=== PATIENT | female | born 1975 | race Caucasian/White ===

== ENCOUNTER 2019-07-30 22:38 | Emergency (ER) | payer OTHER ==
[~2019-07-30] VITALS: Ht 167.6 cm; Wt 74.8 kg
[~2019-07-30 22:38] MED LIST: GLYB1TAB29 PO; LANTUS SUBQ; PREN-385 PO
[2019-07-30 22:45] VITALS: BP 130/85
--- NOTE | 2019-07-30 22:45 | NUR ---
TO BED # -03 AMBULATORY
--- NOTE | 2019-07-30 22:55 | NUR ---
PT C/O LT FLANK PAIN THAT RADIATES TO LOW ABD X3 DAYS. DENIES N/V/D. INCREASE IN URINATION. DENIES DYSURIA. PT STATES CHILLS X3 DAYS. PT STATES SHARP 10/10 PAIN AT THIS TIME. PT "FEELS BLOATED". +HEADACHE AND INCREASE IN COUGH FOR 3 DAYS. PT IN BED WITH FAMILY MEMBER AT BEDSIDE. VSS AT THIS TIME MEDHX: DM, ANEMIA ALLERGIES: AMOXICILLIN
[2019-07-30] MEDS ORDERED: KETOROLAC 30 MG/ML VIAL IM ONE (23:15)
--- NOTE | 2019-07-30 23:37 | NUR ---
PT TAKEN TO CT
[2019-07-30 23:43] LABS: BASOPHILS % (AUTO) 0.3 % (0.0-2.0); EOSINOPHILS # (AUTO) 0.1 K/uL (0-0.4); EOSINOPHILS % (AUTO) 1.5 % (0.0-4.0); HEMATOCRIT 35.6 % (36-48); HEMOGLOBIN 11.7 g/dL (12.0-16.0); LYMPHOCYTES # (AUTO) 1.6 K/uL (2.5-16.5); MEAN CORPUSCULAR HEMOGLOBIN 27 pg (27-31); MEAN CORPUSCULAR HGB CONC 33 g/dL (33-37); MEAN CORPUSCULAR VOLUME 82.3 fL (80-94); MONOCYTES # (AUTO) 0.6 K/uL (0.8-1.0); MONOCYTES % (AUTO) 9.4 % (1.7-9.3); NEUTROPHILS # (AUTO) 4.4 K/uL (1.8-7.7); NEUTROPHILS % (AUTO) 64.8 % (42.2-75.2); PLATELET COUNT (AUTO) 216 K/uL (140-450); RED BLOOD CELL COUNT(AUTO) 4.32 MIL/uL (4.20-5.40); RED CELL DISTRIBUTION WIDTH 14.3 % (11.6-13.7); WHITE BLOOD COUNT (AUTO) 6.8 K/uL (4.8-10.8)
[2019-07-30 23:48] LABS: ANION GAP 12.1 (8-16); CARBON DIOXIDE 28.9 mmol/L (21-32); CREATININE 0.9 mg/dL (0.6-1.3)
--- NOTE | 2019-07-30 23:48 | NUR ---
PT RETURN FROM CT
[2019-07-30 23:56] LABS: ALBUMIN 2.9 g/dL (3.4-5.0); TOTAL BILIRUBIN 0.3 mg/dL (0.0-1.0)
--- NOTE | 2019-07-31 00:43 | NUR ---
PT STATES 8/10 SHARP PAIN, WORSE UPON MOVEMENT. DR MCGUIRE MADE AWARE.
[2019-07-31] MEDS ORDERED: fentaNYL 0.05 MG/ML VIAL IM ONE (00:55)
[2019-07-31] MEDS ORDERED: NACL 0.9% 1,000 ML IV ONE (01:20)
--- NOTE | 2019-07-31 01:57 | NUR ---
PT STATES RELIEF OF PAIN AT THIS TIME. PT POSITIONED COMFORTABLY IN BED, MOTHER AT BEDSIDE. BED LOCKED AND IN LOW POSITON. WILL CONTINUE TO MONITOR. VSS.
[2019-07-31 02:27] VITALS: BP 144/79
--- NOTE | 2019-07-31 02:27 | NUR ---
DISCHARGE PAPERS GIVEN TO PT. PT STATES RELIEF. 04/06 TOLLERABLE PAIN. VSS. RX OF NORCO AND REGLAN GIVEN. SIDE EFFECTS EXPLAINED. INSTRUCTED TO F/U WITH PCP AND WHEN TO RETURN TO ER. PT VERBALLIZED UNDERSTANDING TO DC INSTRUCTIONS. ALL QUESTIONS ANSWERED.
== END 2019-07-31 02:27 | disposition home or self-care (01) ==
LOC: MED 22:38
DX: R10.12 Left upper quadrant pain (principal); E11.65 Type 2 diabetes mellitus with hyperglycemia; D64.9 Anemia, unspecified; I10 Essential (primary) hypertension; Z90.710 Acquired absence of both cervix and uterus; Z79.899 Other long term (current) drug therapy; Z79.4 Long term (current) use of insulin
CPT/HCPCS: 36415; 74176; 80053; 81002; 81025; 82948; 85025; 96360; 96372; 99284; J1885; J3010; J7030

== ENCOUNTER 2019-09-02 17:47 | Emergency (ER) | payer OTHER ==
[2019-09-02] MEDS ORDERED: KETOROLAC 60 MG/2 ML VIAL IM ONE (21:56)
== END 2019-09-02 22:42 | disposition home or self-care (01) ==
LOC: MED 17:47
DX: S92.405A Nondisplaced unspecified fracture of left great toe, initial encounter for closed fracture (principal); E11.9 Type 2 diabetes mellitus without complications; W20.8XXA Other cause of strike by thrown, projected or falling object, initial encounter; Y93.89 Activity, other specified; Y92.89 Other specified places as the place of occurrence of the external cause; Y99.8 Other external cause status
CPT/HCPCS: 29515; 73630; 99283; J1885; Q0092

== ENCOUNTER 2019-09-12 08:01 | Emergency (ER) | payer OTHER ==
[~2019-09-12] VITALS: Ht 167.6 cm; Wt 83.5 kg
[2019-09-12 08:06] VITALS: BP 122/76
--- NOTE | 2019-09-12 08:10 | NUR ---
PT USED WALKER TO ASSIST TO BED 3
--- NOTE | 2019-09-12 08:17 | NUR ---
44 Y/O C/O PAIN TO LEFT FOOT THAT RADIATES TO UPPER THIGH. PT STATES SHE BROKE HER TOE LAST WEEK AT WORK. HAS BEEN TAKING IBPROFEN FOR THE PAIN, HOWEVER THE PAIN HAS CHANGED FROM LOCALIZED TOE PAIN, TO RADIATING UP HER LEG TO HER HIP AREA. PT STATES IBPROFEN HAS WORKED FOR HER AT HOME. PT POSITIONED FOR COMFORT, BED LOWERED, X1 SIDE RAIL IN PLACE. OLESYA
--- NOTE | 2019-09-12 08:27 | NUR ---
EVALUATING PT AT BEDSIDE.
--- NOTE | 2019-09-12 08:40 | NUR ---
Penny eddy in ED - 09/12/19 at 0840 by [facility] AT BEDSIDE WITH PT.
--- NOTE | 2019-09-12 08:40 | NUR ---
EMT AT BEDSIDE WITH PT.
[2019-09-12 09:07] VITALS: BP 122/76
== END 2019-09-12 09:07 | disposition home or self-care (01) ==
LOC: MED 08:01
DX: M79.675 Pain in left toe(s) (principal); E11.9 Type 2 diabetes mellitus without complications; I10 Essential (primary) hypertension; Z79.899 Other long term (current) drug therapy; Z79.4 Long term (current) use of insulin
CPT/HCPCS: 29515; 99283

== ENCOUNTER 2019-10-01 09:33 | Emergency (ER) | payer OTHER ==
[~2019-10-01] VITALS: Ht 167.6 cm; Wt 83.5 kg
--- NOTE | 2019-10-01 09:47 | NUR ---
Patient ambulated to bed 6 with use of crutches.
[2019-10-01 09:51] VITALS: BP 169/96
--- NOTE | 2019-10-01 09:55 | NUR ---
44 Y/O F C/C LEFT FOOT PAIN. PER PT HAD LEFT FOOT FX A MONTH AGO. PAIN HAS BEEN PERSISTENT AND INCREASING. PT CONCERNED WITH FOOT REDNESS AND ABRASION. PAIN 05/07. PER PT NKA. HX DM. RX METFORMIN, LANTUS. NO N/V/D. SIDE RAIL X1. FAMILY AT BEDSIDE.
--- NOTE | 2019-10-01 10:23 | NUR ---
Dr. Oquendo is re-evaluating the patient at bedside.
[2019-10-01 10:31] VITALS: BP 135/76
--- NOTE | 2019-10-01 10:31 | NUR ---
Patient discharged with v/s stable. Written and verbal after care instructions given and explained. Patient verbalized understanding. Ambulatory with steady gait. All questions addressed prior to discharge. Advised to follow up with PMD.
== END 2019-10-01 10:31 | disposition home or self-care (01) ==
LOC: MED 09:33
DX: M79.672 Pain in left foot (principal); E11.9 Type 2 diabetes mellitus without complications; I10 Essential (primary) hypertension; Z79.899 Other long term (current) drug therapy; Z79.4 Long term (current) use of insulin
CPT/HCPCS: 99283

== ENCOUNTER 2019-10-13 06:54 | Emergency (ER) | payer OTHER ==
[~2019-10-13] VITALS: Ht 167.6 cm; Wt 83.0 kg
[2019-10-13 06:55] VITALS: BP 129/90
--- NOTE | 2019-10-13 06:55 | NUR ---
to bed # 03 ambulatory
--- NOTE | 2019-10-13 07:40 | NUR ---
lower abd pain, n/v, HX: HTN, DM. SKIN IS PINK/WARM/DRY; AAOX4 WITH EVEN AND STEADY GAIT; LUNGS CLEAR BL; HR EVEN AND REGULAR; PT DENIES ANY FEVER, CP, SOB, OR COUGH AT THIS TIME; PATIENT STATES PAIN OF 9/10 AT THIS TIME; VSS; PATIENT POSITIONED FOR COMFORT; HOB ELEVATED; BEDRAILS UP X2; BED DOWN. ER MD MADE AWARE OF PT STATUS.FAMILY AT BEDSIDE.
[2019-10-13] MEDS ORDERED: KETOROLAC 30 MG/ML VIAL IM ONE (07:55)
--- NOTE | 2019-10-13 08:35 | NUR ---
Patient discharged with v/s stable. Written and verbal after care instructions given and explained. Patient alert, oriented and verbalized understanding of instructions. Ambulatory with steady gait. All questions addressed prior to discharge. ID band removed. Patient advised to follow up with PMD. Rx of MIRALAX POWDER given. Patient educated on indication of medication including possible reaction and side effects. Opportunity to ask questions provided and answered.
[2019-10-13 08:36] VITALS: BP 125/80
== END 2019-10-13 08:35 | disposition home or self-care (01) ==
LOC: MED 06:54
DX: K59.00 Constipation, unspecified (principal); E11.9 Type 2 diabetes mellitus without complications; I10 Essential (primary) hypertension; Z79.899 Other long term (current) drug therapy; Z79.84 Long term (current) use of oral hypoglycemic drugs
CPT/HCPCS: 81002; 81025; 96372; 99283; J1885

== ENCOUNTER 2020-07-21 13:51 | Emergency (ER) | payer OTHER ==
[~2020-07-21] VITALS: Ht 165.1 cm; Wt 81.6 kg
[2020-07-21 13:54] VITALS: BP 159/90
--- NOTE | 2020-07-21 14:00 | NUR ---
Pt c/o right lower quadrant pain, sudden onset about 20 min prior to arrival with vomiting. Pt states she has hx of right-sided ovarian cyst that was diagnosed last year, and she also states she has those sx each month but "this time is really bad." Denies abnormal vaginal bleeding, lower back pain, diarrhea, fever, chills, or UTI sx. Pmh: HTN, DM, RIGHT-SIDED OVARIAN CYST
[2020-07-21] MEDS ORDERED: NACL 0.9% 1,000 ML IV ONE (14:10)
[2020-07-21] MEDS ORDERED: KETOROLAC 30 MG/ML VIAL IVP ONE (14:10)
[2020-07-21] MEDS ORDERED: ONDANSETRON 4 MG/2 ML VIAL IVP ONE (14:10)
--- NOTE | 2020-07-21 14:30 | NUR ---
PT HAS BEEN TAKING TO CT SCAN VIA .
[2020-07-21 14:31] LABS: BASOPHILS % (AUTO) 0.5 % (0.0-2.0); EOSINOPHILS % (AUTO) 0.9 % (0.0-4.0); HEMATOCRIT 37.4 % (36-48); HEMOGLOBIN 12.8 g/dL (12.0-16.0); LYMPHOCYTES # (AUTO) 1.2 K/uL (2.5-16.5); LYMPHOCYTES % (AUTO) 22.7 % (20.5-51.1); MEAN CORPUSCULAR HEMOGLOBIN 28 pg (27-31); MEAN CORPUSCULAR HGB CONC 34 g/dL (33-37); MEAN CORPUSCULAR VOLUME 82.4 fL (80-94); MONOCYTES # (AUTO) 0.4 K/uL (0.8-1.0); MONOCYTES % (AUTO) 7.1 % (1.7-9.3); NEUTROPHILS # (AUTO) 3.6 K/uL (1.8-7.7); NEUTROPHILS % (AUTO) 68.8 % (42.2-75.2); PLATELET COUNT (AUTO) 217 K/uL (140-450); RED BLOOD CELL COUNT(AUTO) 4.54 MIL/uL (4.20-5.40); WHITE BLOOD COUNT (AUTO) 5.3 K/uL (4.8-10.8)
[2020-07-21 14:52] LABS: ALBUMIN 2.9 g/dL (3.4-5.0); ANION GAP 15.2 (8-16); CARBON DIOXIDE 25.3 mmol/L (21-32); CREATININE 0.7 mg/dL (0.6-1.3); POTASSIUM 3.5 mmol/L (3.5-5.1); TOTAL BILIRUBIN 0.3 mg/dL (0.0-1.0)
--- NOTE | 2020-07-21 15:35 | NUR ---
US IS AT BEDSIDE.
[2020-07-21 17:02] VITALS: BP 113/61
--- NOTE | 2020-07-21 17:02 | NUR ---
Patient discharged with v/s stable. Written and verbal after care instructions given and explained. Patient alert, oriented and verbalized understanding of instructions. Ambulatory with steady gait. All questions addressed prior to discharge. ID band removed. Patient advised to follow up with PMD. Rx of Zofran, [place], and Motrin given. Patient educated on indication of medication including possible reaction and side effects. Opportunity to ask questions provided and answered.
== END 2020-07-21 17:02 | disposition home or self-care (01) ==
LOC: MED 13:51
DX: N83.209 Unspecified ovarian cyst, unspecified side (principal); E11.9 Type 2 diabetes mellitus without complications; Z79.4 Long term (current) use of insulin; Z98.890 Other specified postprocedural states; Z79.899 Other long term (current) drug therapy
CPT/HCPCS: 36415; 74176; 76856; 80053; 81002; 81025; 83690; 85025; 96361; 96374; 96375; 99285; J1885; J2405; Q0092; J7030

== ENCOUNTER 2021-02-14 14:51 | Emergency (ER) | payer OTHER ==
[~2021-02-14] VITALS: Ht 167.6 cm; Wt 133.4 kg
[2021-02-14 15:02] VITALS: BP 135/72
[2021-02-14] MEDS ORDERED: NACL 0.9% 1,000 ML IV ONE (15:15)
--- NOTE | 2021-02-14 15:38 | NUR ---
45/F presents to ED with c/o high blood sugar. Patient states she was seen at a clinic this morning and was told to come here due to high blood sugar. Patient states she took her Metformin this morning and had her last meal at 11am. Patient denies pain, headache, dizziness or blurred vision. States she just feels sleepy at this time. Patient is alert and oriented x4, answering questions appropriately. Accucheck on arrival 507.
[2021-02-14 15:54] LABS: BASOPHILS % (AUTO) 0.3 % (0.0-2.0); EOSINOPHILS # (AUTO) 0.1 K/uL (0-0.4); EOSINOPHILS % (AUTO) 1.5 % (0.0-4.0); HEMATOCRIT 36.2 % (36-48); HEMOGLOBIN 12.6 g/dL (12.0-16.0); LYMPHOCYTES # (AUTO) 1.4 K/uL (2.5-16.5); LYMPHOCYTES % (AUTO) 20.8 % (20.5-51.1); MEAN CORPUSCULAR HEMOGLOBIN 29 pg (27-31); MEAN CORPUSCULAR HGB CONC 35 g/dL (33-37); MEAN CORPUSCULAR VOLUME 83.6 fL (80-94); MONOCYTES # (AUTO) 0.6 K/uL (0.8-1.0); MONOCYTES % (AUTO) 8.7 % (1.7-9.3); NEUTROPHILS # (AUTO) 4.5 K/uL (1.8-7.7); NEUTROPHILS % (AUTO) 68.7 % (42.2-75.2); PLATELET COUNT (AUTO) 213 K/uL (140-450); RED BLOOD CELL COUNT(AUTO) 4.33 MIL/uL (4.20-5.40); RED CELL DISTRIBUTION WIDTH 14.1 % (11.6-13.7); WHITE BLOOD COUNT (AUTO) 6.6 K/uL (4.8-10.8)
[2021-02-14 16:16] LABS: ANION GAP 12.3 (8-16); CARBON DIOXIDE 26.6 mmol/L (21-32); CREATININE 1.1 mg/dL (0.6-1.3); POTASSIUM 3.9 mmol/L (3.5-5.1)
--- NOTE | 2021-02-14 16:20 | NUR ---
Accucheck rechecked, 421, Dr. Mosher made aware.
[2021-02-14] MEDS ORDERED: INSULIN REGULAR, HUMAN 100 UNIT/ML VIAL IVP ONE (16:30)
--- NOTE | 2021-02-14 17:10 | NUR ---
Patient discharged with v/s stable. Written and verbal after care instructions given and explained. Patient verbalized understanding. Ambulatory with steady gait. All questions addressed prior to discharge. Advised to follow up with PMD. Accucheck rechecked at discharge, 254.
[2021-02-14 17:13] VITALS: BP 131/78
== END 2021-02-14 17:10 | disposition home or self-care (01) ==
LOC: MED 14:51
DX: E11.65 Type 2 diabetes mellitus with hyperglycemia (principal); R53.1 Weakness; R42 Dizziness and giddiness; Z98.890 Other specified postprocedural states; Z79.899 Other long term (current) drug therapy; Z79.4 Long term (current) use of insulin
CPT/HCPCS: 36415; 80048; 81002; 81025; 82948; 85025; 96361; 96374; 99283; J1815; J7030

== ENCOUNTER 2021-09-12 20:00 | Emergency (ER) | payer OTHER ==
[~2021-09-12] VITALS: Ht 167.6 cm; Wt 90.7 kg
[2021-09-12 20:16] VITALS: BP 107/66
--- NOTE | 2021-09-12 20:19 | NUR ---
to lobby a/w bed ambulatory
--- NOTE | 2021-09-12 21:25 | NUR ---
TO BED AMBULATORY
--- NOTE | 2021-09-12 21:35 | NUR ---
RECEIVED IN BED 12 WITH C/O SORE THROAT, BILATERAL EAR PAIN, NAUSEA, PAINFUL URINATION, AND LEG PAIN X 3 DAYS.
[2021-09-12] MEDS ORDERED: IBUPROFEN 800 MG TAB PO ONE (23:15)
[2021-09-12] MEDS ORDERED: ONDANSETRON 4 MG ODT PO ONE (23:15)
[2021-09-13] MEDS ORDERED: NACL 0.9% 1,000 ML IV ONE (00:50)
[2021-09-13 01:38] LABS: BASOPHILS % (AUTO) 0.4 % (0.0-2.0); EOSINOPHILS % (AUTO) 0.1 % (0.0-4.0); HEMATOCRIT 30.5 % (36-48); HEMOGLOBIN 10.7 g/dL (12.0-16.0); LYMPHOCYTES # (AUTO) 0.8 K/uL (2.5-16.5); LYMPHOCYTES % (AUTO) 13.1 % (20.5-51.1); MEAN CORPUSCULAR HEMOGLOBIN 28 pg (27-31); MEAN CORPUSCULAR HGB CONC 35 g/dL (33-37); MEAN CORPUSCULAR VOLUME 80.9 fL (80-94); MONOCYTES # (AUTO) 0.6 K/uL (0.8-1.0); MONOCYTES % (AUTO) 9.4 % (1.7-9.3); NEUTROPHILS # (AUTO) 4.5 K/uL (1.8-7.7); PLATELET COUNT (AUTO) 147 K/uL (140-450); RED BLOOD CELL COUNT(AUTO) 3.77 MIL/uL (4.20-5.40); RED CELL DISTRIBUTION WIDTH 13.7 % (11.6-13.7); WHITE BLOOD COUNT (AUTO) 5.9 K/uL (4.8-10.8)
[2021-09-13 01:54] LABS: ALBUMIN 2.4 g/dL (3.4-5.0); CARBON DIOXIDE 25.9 mmol/L (21-32); CREATININE 0.9 mg/dL (0.6-1.3); POTASSIUM 3.9 mmol/L (3.5-5.1); TOTAL BILIRUBIN 0.4 mg/dL (0.0-1.0)
--- NOTE | 2021-09-13 02:00 | NUR ---
RESTING IN BED WITH EYES CLOSED. RESPIRATIONS REGULAR AND UNLABORED
[2021-09-13] MEDS ORDERED: INSULIN REGULAR, HUMAN 100 UNIT/ML VIAL IVP ONE (03:05)
[2021-09-13 03:23] VITALS: BP 107/66
== END 2021-09-13 03:23 | disposition home or self-care (01) ==
LOC: MED 20:00
DX: R53.81 Other malaise (principal); Z20.822 Contact with and (suspected) exposure to COVID-19; E83.51 Hypocalcemia; E11.65 Type 2 diabetes mellitus with hyperglycemia; I10 Essential (primary) hypertension; Z79.4 Long term (current) use of insulin; Z79.899 Other long term (current) drug therapy
CPT/HCPCS: 36415; 71045; 80053; 81002; 81025; 85025; 87081; 87426; 87804; 96360; 99283; J1815; J7030; Q0092; Q0162

== ENCOUNTER 2022-06-08 23:00 | Emergency (ER) | payer OTHER ==
[~2022-06-08] VITALS: Ht 167.6 cm; Wt 85.3 kg
[~2022-06-08 23:00] MED LIST changes: -GLYB1TAB29 PO; +[UNRECOGNIZED DRUG - CODE] PO
[2022-06-08 23:29] VITALS: BP 201/104
--- NOTE | 2022-06-09 00:31 | NUR ---
PT TO BED #11
--- NOTE | 2022-06-09 00:59 | NUR ---
ERMD ASSESSING PT.
[2022-06-09] MEDS ORDERED: KETOROLAC 15 MG/ML VIAL IVP ONE (01:00)
[2022-06-09] MEDS ORDERED: ONDANSETRON 4 MG/2 ML VIAL IVP ONE (01:00)
[2022-06-09] MEDS ORDERED: NACL 0.9% 1,000 ML IV ONE ×2 (01:00→03:05)
--- NOTE | 2022-06-09 01:03 | NUR ---
LABS COLLECTED AND TAKEN TO LAB
--- NOTE | 2022-06-09 01:03 | NUR ---
46 YO F BIB SELF WITH C/C OF 9/10 H/AXFRIDAY. WENT TO URGENT CARE YESTERDAY AND WAS GIVEN A ANTI INFLAMMATORY SHOT AND MEDS, NO RELIEF. REPORTS CHILLS, DENIES FEVER. REPORTS N/V 2EPISODES, SAT AND SUN. DENIES ABD PAIN. PT STATES SHE MISSED HER INSULIN TONIGHT. HX:DM RX"INSULIN NKA
--- NOTE | 2022-06-09 01:11 | NUR ---
PT TAKEN TO CT VIA W/C.
[2022-06-09 01:30] LABS: BASOPHILS % (AUTO) 0.3 % (0.0-2.0); EOSINOPHILS % (AUTO) 0.2 % (0.0-4.0); HEMATOCRIT 33.9 % (36-48); HEMOGLOBIN 11.7 g/dL (12.0-16.0); LYMPHOCYTES # (AUTO) 0.4 K/uL (2.5-16.5); MEAN CORPUSCULAR HEMOGLOBIN 28 pg (27-31); MEAN CORPUSCULAR HGB CONC 35 g/dL (33-37); MONOCYTES # (AUTO) 0.5 K/uL (0.8-1.0); MONOCYTES % (AUTO) 7.5 % (1.7-9.3); NEUTROPHILS # (AUTO) 5.8 K/uL (1.8-7.7); PLATELET COUNT (AUTO) 161 K/uL (140-450); RED BLOOD CELL COUNT(AUTO) 4.13 MIL/uL (4.20-5.40); RED CELL DISTRIBUTION WIDTH 13.7 % (11.6-13.7); WHITE BLOOD COUNT (AUTO) 6.8 K/uL (4.8-10.8)
[2022-06-09 02:20] LABS: PROTHROMBIN TIME 10.3 secs (10.8-13.4)
--- NOTE | 2022-06-09 02:25 | NUR ---
Note surjit in EDM - 06/09/22 at 0227 by [facility] PER PLASTIC PANEL INSTALLER, IV INFILTRATED WITH CONTRAST. IV REMOVED. WARM COMPRESSES INITIATED. NOE BRAN STATED TO SCAN WITHOUT CONTRAST. ORDERS CARRIED OUT.
[2022-06-09 02:52] LABS: ALBUMIN 2.4 g/dL (3.4-5.0); ANION GAP 13.1 (8-16); CARBON DIOXIDE 25.7 mmol/L (21-32); CREATININE 1.2 mg/dL (0.6-1.3); POTASSIUM 3.8 mmol/L (3.5-5.1); TOTAL BILIRUBIN 0.4 mg/dL (0.0-1.0)
[2022-06-09] MEDS ORDERED: INSULIN REGULAR, HUMAN 100 UNIT/ML VIAL SUBQ ONE (03:05)
[2022-06-09] MEDS ORDERED: TAM75 PO (05:01)
[2022-06-09] MEDS ORDERED: IBUP-2213 PO (05:01)
[2022-06-09] MEDS ORDERED: ACET-10509 PO (05:01)
[2022-06-09] MEDS ORDERED: ONDA-188 PO (05:01)
[2022-06-09 05:08] VITALS: BP 121/61
--- NOTE | 2022-06-09 05:08 | NUR ---
Patient discharged with v/s stable. Written and verbal after care instructions given and explained. Patient alert, oriented and verbalized understanding of instructions. Ambulatory with steady gait. All questions addressed prior to discharge. ID band removed. Patient advised to follow up with PMD. Rx of ZOFRAN, TAMIFLU, TYLENOL AND IBUPROFEN given. Patient educated on indication of medication including possible reaction and side effects. Opportunity to ask questions provided and answered.
== END 2022-06-09 05:08 | disposition home or self-care (01) ==
LOC: MED 23:00
DX: E11.65 Type 2 diabetes mellitus with hyperglycemia (principal); Z20.822 Contact with and (suspected) exposure to COVID-19; J10.1 Influenza due to other identified influenza virus with other respiratory manifestations; E87.1 Hypo-osmolality and hyponatremia; I10 Essential (primary) hypertension; Z79.4 Long term (current) use of insulin; Z79.899 Other long term (current) drug therapy
CPT/HCPCS: 36415; 70450; 71045; 80053; 85025; 85610; 85730; 87426; 87804; 96361; 96372; 96374; 96375; 99285; J1815; J1885; J2405; J7030

== ENCOUNTER 2022-11-11 16:05 | Emergency (ER) | payer OTHER ==
[~2022-11-11] VITALS: Ht 167.6 cm; Wt 90.9 kg
[~2022-11-11 16:05] MED LIST changes: +ACET-10509 PO; +IBUP-2213 PO; +ONDA-188 PO; +TAM75 PO
[2022-11-11 16:12] VITALS: BP 191/88
--- NOTE | 2022-11-11 16:23 | NUR ---
PT AMB TO BED 11.
[2022-11-11] MEDS ORDERED: ACETAMINOPHEN EXTRA STRENGTH 500 MG TAB PO ONE (16:50)
[2022-11-11] MEDS ORDERED: NACL 0.9% 2,000 ML IV ONE (16:50)
[2022-11-11] MEDS ORDERED: MORPHINE SULFATE 4 MG/ML SYR IVP ONE (16:50)
[2022-11-11] MEDS ORDERED: ONDANSETRON 4 MG/2 ML VIAL IVP ONE (16:50)
[2022-11-11 17:02] LABS: APPEARANCE,URINE CLEAR (CLEAR); BILIRUBIN,URINE NEGATIVE (NEGATIVE); BLOOD, URINE 2+ (NEGATIVE); COLOR,URINE YELLOW (YELLOW); LEUKOCYTE ESTERASE ,URINE NEGATIVE (NEGATIVE); NITRITE, URINE NEGATIVE (NEGATIVE); UGLUCOSE 3+ (NEGATIVE)
[2022-11-11 17:12] LABS: RBC,URINE 11-20 (MOD) /HPF (0-5)
[2022-11-11 17:16] LABS: BASOPHILS % (AUTO) 0.2 % (0.0-2.0); EOSINOPHILS % (AUTO) 0.2 % (0.0-4.0); HEMATOCRIT 32.8 % (36-48); HEMOGLOBIN 11.3 g/dL (12.0-16.0); LYMPHOCYTES # (AUTO) 0.5 K/uL (2.5-16.5); LYMPHOCYTES % (AUTO) 5.5 % (20.5-51.1); MEAN CORPUSCULAR HEMOGLOBIN 27 pg (27-31); MEAN CORPUSCULAR HGB CONC 35 g/dL (33-37); MEAN CORPUSCULAR VOLUME 78.7 fL (80-94); MONOCYTES # (AUTO) 0.5 K/uL (0.8-1.0); MONOCYTES % (AUTO) 5.4 % (1.7-9.3); NEUTROPHILS # (AUTO) 8.7 K/uL (1.8-7.7); NEUTROPHILS % (AUTO) 88.7 % (42.2-75.2); PLATELET COUNT (AUTO) 250 K/uL (140-450); RED BLOOD CELL COUNT(AUTO) 4.17 MIL/uL (4.20-5.40); RED CELL DISTRIBUTION WIDTH 13.4 % (11.6-13.7); WHITE BLOOD COUNT (AUTO) 9.9 K/uL (4.8-10.8)
--- NOTE | 2022-11-11 17:45 | NUR ---
47/F PRESENTS TO ED WITH C/O CHEST PAIN, RADIATING TO SHOULDER SINCE THURSDAY, AND NAUSEA/VOMITING TODAY. PATIENT DENIES RECENT INJURY OR TRAUMA, STATES SHE TOOK TYLENOL FOR SYMPTOMS WITH MILD RELIEF. PATIENT ALSO C/O INTERMITTENT CHILLS, DENIES FEVERS, COUGH, SOB OR RECENT SICK CONTACTS.
[2022-11-11 18:10] LABS: ALBUMIN 3.5 g/dL (3.4-5.0); ANION GAP 13.3 (8-16); ASPARTATE AMINOTRANSFERASE 14 U/L (15-37); CARBON DIOXIDE 27.8 mmol/L (21-32); CHLORIDE 91 mmol/L (98-107); GFR ARICAN-AMERICAN 76 mL/min (>90); LIPASE 48 U/L (73-393); MAGNESIUM 1.5 mg/dL (1.8-2.4); PHOSPHORUS 2.6 mg/dL (2.5-4.9); POTASSIUM 4.1 mmol/L (3.5-5.1); SODIUM SERUM 128 mmol/L (136-145); TOTAL BILIRUBIN 0.4 mg/dL (0.0-1.0); UREA NITROGEN, BLOOD 17 mg/dL (7-18)
[2022-11-11 18:12] LABS: GLUCOSE 479 mg/dL (74-106)
[2022-11-11] MEDS ORDERED: INSULIN REGULAR, HUMAN 100 UNIT/ML VIAL SUBQ ONE (18:20)
[2022-11-11] MEDS ORDERED: MAG SULF 2000 MG/WATER PREMIX 50 ML IV ONE (18:40)
[2022-11-11] MEDS ORDERED: cefTRIAXone 1,000 MG VIAL ONE (19:05)
--- NOTE | 2022-11-11 19:14 | NUR ---
Pt report given to SUGEY GERARD. Transfer of care at this time.
--- NOTE | 2022-11-11 19:16 | NUR ---
REPORT FROM DANIELA MAYES
--- NOTE | 2022-11-11 19:26 | NUR ---
PT TO CT
--- NOTE | 2022-11-11 19:37 | NUR ---
PT BACK FROM CT
[2022-11-11] MEDS ORDERED: KETOROLAC 15 MG/ML VIAL IVP ONE (20:55)
[2022-11-11] MEDS ORDERED: ACET-10509 PO (20:55)
[2022-11-11] MEDS ORDERED: ONDA-188 PO (20:55)
[2022-11-11] MEDS ORDERED: CEFP200T20 PO (20:55)
[2022-11-11 20:56] VITALS: BP 111/52
--- NOTE | 2022-11-11 21:31 | NUR ---
d/c with VSS. d/c education given. opportunity toask questions given and answered. rx given. IV site removed, bleeding controlled with sterile gauze and reinforced with tape.
--- NOTE | 2022-11-13 13:27 | NUR ---
LATE ENTRY -- CONFIRMED WITH NURSE NS INFUSION COMPLETED AT 1804 11/11/22 AND MAGNESIUM INFUSION COMPLETED AT 2045
== END 2022-11-11 21:32 | disposition home or self-care (01) ==
LOC: MED 16:05
DX: N39.0 Urinary tract infection, site not specified (principal); Z20.822 Contact with and (suspected) exposure to COVID-19; M25.512 Pain in left shoulder; E11.65 Type 2 diabetes mellitus with hyperglycemia; N28.9 Disorder of kidney and ureter, unspecified; E11.9 Type 2 diabetes mellitus without complications; I10 Essential (primary) hypertension; Z79.4 Long term (current) use of insulin; Z79.899 Other long term (current) drug therapy
CPT/HCPCS: 36415; 71045; 71275; 73030; 80053; 81001; 81025; 82550; 83605; 83690; 83735; 83930; 84100; 84484; 85025; 85379; 87040; 87086; 87426; 87804; 93005; 96365; 96367; 96372; 96375; 99285; J0696; J1815; J1885; J2405; J3475; J7030; Q0092; Q9967; 96368

== ENCOUNTER 2022-11-13 14:47 | Inpatient (IN) | payer OTHER ==
[~2022-11-13] VITALS: Ht 167.6 cm; Wt 93.0 kg
[~2022-11-13 14:47] MED LIST changes: +CEFP200T20 PO
[2022-11-13 14:51] VITALS: BP 139/90
[2022-11-13 15:27] LABS: BASOPHILS # (AUTO) 0.1 K/uL (0.00-0.22); BASOPHILS % (AUTO) 0.7 % (0.0-2.0); EOSINOPHILS # (AUTO) 0.1 K/uL (0-0.4); EOSINOPHILS % (AUTO) 1.1 % (0.0-4.0); HEMOGLOBIN 10.3 g/dL (12.0-16.0); LYMPHOCYTES % (AUTO) 13.8 % (20.5-51.1); MEAN CORPUSCULAR HEMOGLOBIN 27 pg (27-31); MEAN CORPUSCULAR HGB CONC 34 g/dL (33-37); MEAN CORPUSCULAR VOLUME 79.4 fL (80-94); MONOCYTES # (AUTO) 0.7 K/uL (0.8-1.0); MONOCYTES % (AUTO) 9.2 % (1.7-9.3); NEUTROPHILS # (AUTO) 5.6 K/uL (1.8-7.7); NEUTROPHILS % (AUTO) 75.2 % (42.2-75.2); PLATELET COUNT (AUTO) 276 K/uL (140-450); RED BLOOD CELL COUNT(AUTO) 3.78 MIL/uL (4.20-5.40); RED CELL DISTRIBUTION WIDTH 13.6 % (11.6-13.7); WHITE BLOOD COUNT (AUTO) 7.5 K/uL (4.8-10.8)
[2022-11-13] MEDS ORDERED: cefTRIAXone 1,000 MG VIAL ONE (15:29)
--- NOTE | 2022-11-13 15:37 | NUR ---
PER DR BRENDA LANDERS TO START ANTIBIOTICS W/O NEW BLOOD CULTURES, CULTURES WERE PULLED ON 11/11/22
[2022-11-13 15:40] LABS: APPEARANCE,URINE CLEAR (CLEAR); BILIRUBIN,URINE NEGATIVE (NEGATIVE); BLOOD, URINE 1+ (NEGATIVE); COLOR,URINE YELLOW (YELLOW); LEUKOCYTE ESTERASE ,URINE NEGATIVE (NEGATIVE); NITRITE, URINE NEGATIVE (NEGATIVE); PH,URINE 5.5 (5.0-9.0); UGLUCOSE 3+ (NEGATIVE)
--- NOTE | 2022-11-13 15:41 | NUR ---
47 Y/O FEMALE BIB SELF C/O WEAKNESSX1 DAY, NAUSEA AND BURNING URINATIONX 6 DAYS. PER PT SHE WAS SEEN IN ED 2 DAYS AGO. RECEIVED + BLOOD CULTURE. BLOOD SUGAR 454 AT THIS TIME. STATES SHE IS ON DAY 2 OF CEFPODOZIME ATB, NADR. PMH: DM,HTN NKA
[2022-11-13 15:55] LABS: RBC,URINE 0 /HPF (0-5); WBC,URINE 0-5 /HPF (0-5)
[2022-11-13 16:25] LABS: ALBUMIN 3.1 g/dL (3.4-5.0); ANION GAP 13.1 (8-16); CARBON DIOXIDE 25.3 mmol/L (21-32); CREATININE 1.1 mg/dL (0.6-1.3); POTASSIUM 4.4 mmol/L (3.5-5.1); TOTAL BILIRUBIN 0.3 mg/dL (0.0-1.0)
[2022-11-13] MEDS ORDERED: HYDROcodone/APAP 5/325 MG 1 TAB TAB PO PRN (17:30)
[2022-11-13] MEDS ORDERED: ACETAMINOPHEN 325 MG TAB PO PRN (17:30)
[2022-11-13] MEDS ORDERED: MORPHINE SULFATE 4 MG/ML SYR IVP PRN (17:30)
--- NOTE | 2022-11-13 17:44 | NUR ---
PT AMBULATED TO BATHROOM WITH STEADY GAIT
[2022-11-13] MEDS: NACL 0.9% 1,000 ML IV SCH (17:49)
--- NOTE | 2022-11-13 18:18 | NUR ---
DINNER GIVEN, HOB ELEVATED
--- NOTE | 2022-11-13 19:17 | NUR ---
Pt report given to STEVEN WASHINGTON. Transfer of care at this time.
[2022-11-13] MEDS ORDERED: ONDANSETRON 4 MG/2 ML VIAL IVP ONE (19:35)
--- NOTE | 2022-11-13 19:40 | NUR ---
PT REPOSITIONED FOR COMFORT. TOLERATING FLUIDS WELL
--- NOTE | 2022-11-13 20:00 | NUR ---
PT AMBULATORY TO RESTROOM
--- NOTE | 2022-11-13 20:05 | NUR ---
PT BACK IN ROOM, ON NIGHT COORDINATOR
--- NOTE | 2022-11-13 22:35 | NUR ---
RECEIVED PATIENT FROM ER NURSE. PT AWAKE, ALERT AND ORIENTED X 4, VINCENTIAN SPEAKING. ON ROOM AIR, BREATHING EVEN AND UNLABORED. SKIN WARM, DRY AND INTACT. IV ON R AC G20, PATENT AND INTACT. PT AMBULATORY WITH STEADY GAIT. NO COMPLAINS OF PAIN. NO S/SX OF DISTRESS AT THIS MOMENT. MRSA SWAB DONE.ORIENTED TO ROOM AND CALL LIGHT. ALL PRECAUTIONS IN PLACE. CALL LIGHT WITHIN REACH. WILL CONTINUE TO MONITOR.
--- NOTE | 2022-11-14 02:41 | NUR ---
PT ASLEEP. VISIBLE CHEST RISE AND FALL NOTED. NO S/SX OF DISTRESS. ALL PRECAUTIONS IN PLACE. CALL LIGHT WITHIN REACH. WILL CONTINUE TO MONITOR.
[2022-11-14 05:58] LABS: BASOPHILS % (AUTO) 0.4 % (0.0-2.0); EOSINOPHILS # (AUTO) 0.1 K/uL (0-0.4); EOSINOPHILS % (AUTO) 1.8 % (0.0-4.0); HEMATOCRIT 27.1 % (36-48); HEMOGLOBIN 9.6 g/dL (12.0-16.0); LYMPHOCYTES # (AUTO) 1.7 K/uL (2.5-16.5); LYMPHOCYTES % (AUTO) 24.2 % (20.5-51.1); MEAN CORPUSCULAR HEMOGLOBIN 28 pg (27-31); MEAN CORPUSCULAR HGB CONC 36 g/dL (33-37); MEAN CORPUSCULAR VOLUME 78.3 fL (80-94); MONOCYTES # (AUTO) 0.7 K/uL (0.8-1.0); MONOCYTES % (AUTO) 10.6 % (1.7-9.3); NEUTROPHILS # (AUTO) 4.3 K/uL (1.8-7.7); PLATELET COUNT (AUTO) 268 K/uL (140-450); RED BLOOD CELL COUNT(AUTO) 3.46 MIL/uL (4.20-5.40); RED CELL DISTRIBUTION WIDTH 13.2 % (11.6-13.7); WHITE BLOOD COUNT (AUTO) 6.8 K/uL (4.8-10.8)
[2022-11-14] MEDS: NACL 0.9% 1,000 ML IV SCH ×2 (06:00→09:23)
[2022-11-14 06:25] LABS: CREATININE 0.7 mg/dL (0.6-1.3)
--- NOTE | 2022-11-14 06:52 | NUR ---
PT IS STABLE. NO ACUTE EVENTS THROUGHOUT THE NIGHT.NO S/SX OF DISTRESS AT THIS MOMENT.ALL NEEDS ATTENDED. ALL PRECAUTIONS IN PLACE. CALL LIGHT WITHIN REACH.WILL ENDORSE TO DAY SHIFT NURSE.
[2022-11-14 08:00] VITALS: BP 136/75
[2022-11-14] MEDS ORDERED: DEXTROSE 50% 50 ML SYR IVP PRN (08:45)
[2022-11-14] MEDS ORDERED: INSULIN LANTUS 100 UNITS/ML 10 ML VIAL SUBQ SCH (09:00)
--- NOTE | 2022-11-14 09:04 | NUR ---
PATIENT HAS BEEN SCREENED AND CATEGORIZED MODERATE NUTRITION RISK. PATIENT WILL BE SEEN WITHIN 3-5 DAYS OF ADMISSION. REVIEWED BY GENO OG RD
[2022-11-14] MEDS: INSULIN LANTUS 100 UNITS/ML 10 ML VIAL SUBQ SCH (09:19)
[2022-11-14] MEDS: BLOOD GLUCOSE MONITORING 1 DEV DEV FS SCH ×3 (12:11→20:29)
[2022-11-14] MEDS: INSULIN LISPRO SLIDING SCALE 100 UNITS/ML VIAL SUBQ PRN ×3 (12:19→20:35)
--- NOTE | 2022-11-14 12:25 | NUR ---
patient emesis moderate x 1; complains of nausea as well. No nausea med on board; called Dr Loya. New order for Zofran PRN
[2022-11-14] MEDS ORDERED: ONDANSETRON 4 MG/2 ML VIAL IVP PRN (12:40)
[2022-11-14 16:00] VITALS: BP 158/74
[2022-11-14] MEDS ORDERED: INSULIN LISPRO 100 UNITS/ML VIAL SUBQ SCH (16:30)
[2022-11-14] MEDS: INSULIN LISPRO 100 UNITS/ML VIAL SUBQ SCH (17:57)
--- NOTE | 2022-11-14 19:10 | NUR ---
RECEIVED PT IN BED AWAKE, ALERT AND ORIENTED X 4. DENIES PAIN. DENIES SHORTNESS OF BREATH. SKIN WARM AND DRY TO TOUCH. BED IN THE LOWEST AND LOCKED POSITION FOR SAFETY, CALL LIGHT IN REACH.
--- NOTE | 2022-11-14 19:20 | NUR ---
STARTED IV IN THE RIGHT FOREARM GAUGE 22 X 1 ATTEMPT, PT TOLERATED WELL. REMOVED OLD IV ACESS WITH INTACT CATHETER, NOT FLUSHING.
[2022-11-15] VITALS: BP 146/74
--- NOTE | 2022-11-15 01:12 | NUR ---
PATIENT IS ASLEEP. NO S/SX OF PAIN NOR DISCOMFORT. CALL LIGHT IN REACH.
[2022-11-15] MEDS: NACL 0.9% 1,000 ML IV SCH (02:14)
--- NOTE | 2022-11-15 06:15 | NUR ---
PATIENT IS AWAKE, ALERT AND ORIENTED, WATCHING TV AT THIS TIME. DENIES PAIN. ALL NEEDS ATTENDED TO. SAFETY PRECAUTIONS MAINTAINED DURING THE SHIFT, CALL LIGHT IN REACH.
[2022-11-15] MEDS: BLOOD GLUCOSE MONITORING 1 DEV DEV FS SCH ×3 (06:31→17:01)
[2022-11-15] MEDS: INSULIN LISPRO 100 UNITS/ML VIAL SUBQ SCH ×3 (06:32→17:06)
[2022-11-15] MEDS: INSULIN LISPRO SLIDING SCALE 100 UNITS/ML VIAL SUBQ PRN ×3 (06:32→17:07)
[2022-11-15 07:25] LABS: ANION GAP 10.7 (8-16); CARBON DIOXIDE 28.9 mmol/L (21-32); CREATININE 0.8 mg/dL (0.6-1.3); POTASSIUM 4.6 mmol/L (3.5-5.1)
--- NOTE | 2022-11-15 08:00 | NUR ---
RECEIVED REPORT, PT RESTING IN BED, AAO x4, RESPIRATIONS EVEN AND UL ON RA. DENIES PAIN/DISCOMFORT. IVF INFUSING TO RFA PER MED ORDER, IV SITE WNL. ALL NEEDS MET. CALL LIGHT IN REACH.
[2022-11-15 08:01] LABS: BASOPHILS % (AUTO) 0.4 % (0.0-2.0); EOSINOPHILS # (AUTO) 0.1 K/uL (0-0.4); EOSINOPHILS % (AUTO) 2.2 % (0.0-4.0); HEMATOCRIT 29.5 % (36-48); HEMOGLOBIN 10.1 g/dL (12.0-16.0); LYMPHOCYTES # (AUTO) 1.5 K/uL (2.5-16.5); LYMPHOCYTES % (AUTO) 25.7 % (20.5-51.1); MEAN CORPUSCULAR HEMOGLOBIN 27 pg (27-31); MEAN CORPUSCULAR HGB CONC 34 g/dL (33-37); MEAN CORPUSCULAR VOLUME 79.4 fL (80-94); MONOCYTES # (AUTO) 0.5 K/uL (0.8-1.0); MONOCYTES % (AUTO) 8.9 % (1.7-9.3); NEUTROPHILS # (AUTO) 3.7 K/uL (1.8-7.7); NEUTROPHILS % (AUTO) 62.8 % (42.2-75.2); PLATELET COUNT (AUTO) 306 K/uL (140-450); RED BLOOD CELL COUNT(AUTO) 3.71 MIL/uL (4.20-5.40); RED CELL DISTRIBUTION WIDTH 13.2 % (11.6-13.7); WHITE BLOOD COUNT (AUTO) 5.9 K/uL (4.8-10.8)
[2022-11-15] MEDS: INSULIN LANTUS 100 UNITS/ML 10 ML VIAL SUBQ SCH (09:07)
[2022-11-15] MEDS ORDERED: LEVO750T75 PO (16:44)
--- NOTE | 2022-11-15 18:00 | NUR ---
PATIENT EATING DINNER, NO C/O PAIN/DISCOMFORT AT THIS TIME. NO SIGNIFICANT CHANGES NOTED THROUGHOUT SHIFT. ALL NEEDS MET. CALL LIGHT IN REACH.
--- NOTE | 2022-11-15 19:00 | NUR ---
REPORT GIVEN TO PM NURSE FOR CONTINUITY OF CARE.
--- NOTE | 2022-11-15 19:10 | NUR ---
RECEIVED PT IN BED, AWAKE,ALERT AND ORIENTED. DENIES PAIN. INFORMED PT THAT SHE IS BEING DISCHARGED HOME. SKIN WARM AND DRY TO TOUCH. SAFETY PRECAUTION IN PLACE, CALL LIGHT IN REACH.
[2022-11-15 19:12] VITALS: BP 146/74
[2022-11-15 20:00] VITALS: BP 146/74
--- NOTE | 2022-11-15 20:30 | NUR ---
DISCHARGE INSTRUCTION GIVEN AND EXPLAINED TO PT. IV REMOVED BY AM RN. REMOVED [place]. ALL BELONGINGS WITH PT. PATIENT DENIES PAIN. NO DISTRESS.
--- NOTE | 2022-12-02 16:24 | NUR ---
GALA HARDIN CALLED DR GOMEZ'S OFFICE [id number] [facility] [place] [address] SPOKE WITH MARYURI WHO INFORMED ME PT HAD A APPOINTMENT 11/19/2022.
== END 2022-11-15 20:30 | disposition home or self-care (01) | DRG 720 ==
LOC: MED 14:47 → OBSVTOIN 17:29 → MMU 17:29 → MTU 17:29
PROVIDERS: ADMIT Student in an Organized Health Care Education/Training Program; ATTEND Student in an Organized Health Care Education/Training Program
DX: A41.9 Sepsis, unspecified organism (principal); E44.1 Mild protein-calorie malnutrition; E87.1 Hypo-osmolality and hyponatremia; E11.9 Type 2 diabetes mellitus without complications; E66.9 Obesity, unspecified; N39.0 Urinary tract infection, site not specified; Z20.822 Contact with and (suspected) exposure to COVID-19; I10 Essential (primary) hypertension; Z98.891 History of uterine scar from previous surgery; Z79.1 Long term (current) use of non-steroidal anti-inflammatories (NSAID); Z79.4 Long term (current) use of insulin; Z79.899 Other long term (current) drug therapy; Z68.33 Body mass index [BMI] 33.0-33.9, adult
CPT/HCPCS: 36415; 80048; 80053; 81001; 82948; 83735; 85025; 87081; 87086; 96365; 96375; 99285; J0696; J1815; J2270; J2405; J7060

== ENCOUNTER 2023-03-31 08:11 | Emergency (ER) | payer OTHER ==
[~2023-03-31] VITALS: Ht 167.6 cm; Wt 95.3 kg
[~2023-03-31 08:11] MED LIST changes: -CEFP200T20 PO; +LEVO750T75 PO
[2023-03-31 08:18] VITALS: BP 186/105; PULSE 84; RESP 20; TEMP 98; O2SAT 98
--- NOTE | 2023-03-31 08:33 | NUR ---
47YO F PRESENTS W/RT LEG PAIN,TINGLING X 4 DAYS. PT DENIES INJURY. NO SWELLING, REDNESS NOTED, SENSATION PRESENT. VISUAL PAIN NOTED W/FACIAL GRIMACING. NAD. HX: SCIATIC PAINX 3YRS,
[2023-03-31] MEDS ORDERED: CYCLOBENZAPRINE 10 MG TAB PO ONE (08:50)
[2023-03-31] MEDS ORDERED: LIDOCAINE 5% 1 EA PATCH TP SCH (08:50)
[2023-03-31] MEDS ORDERED: KETOROLAC 15 MG/ML VIAL IM ONE (08:50)
[2023-03-31] MEDS ORDERED: oxyCODONE 10 MG TABER PO ONE (09:40)
[2023-03-31] MEDS ORDERED: NAPR-1871 PO ×2 (10:38→12:31)
[2023-03-31] MEDS ORDERED: OXYC5CAP26 PO ×3 (10:39→12:31)
--- NOTE | 2023-03-31 11:05 | NUR ---
Patient discharged with v/s stable. Written and verbal after care instructions given and explained. Patient alert, oriented and verbalized understanding of instructions. Ambulatory with steady gait. All questions addressed prior to discharge. ID band removed. Patient advised to follow up with PMD. Rx of NAPROXEN, OXYCODONE given. Opportunity to ask questions provided and answered.
== END 2023-03-31 11:08 | disposition home or self-care (01) ==
LOC: MED 08:11
DX: M79.604 Pain in right leg (principal); E11.9 Type 2 diabetes mellitus without complications; E78.5 Hyperlipidemia, unspecified; I10 Essential (primary) hypertension; Z79.899 Other long term (current) drug therapy; Z79.2 Long term (current) use of antibiotics; Z79.1 Long term (current) use of non-steroidal anti-inflammatories (NSAID); Z79.4 Long term (current) use of insulin
CPT/HCPCS: 96372; 99284; J1885

== ENCOUNTER 2024-02-29 08:44 | Emergency (ER) | payer OTHER ==
[~2024-02-29] VITALS: Ht 167.6 cm; Wt 86.6 kg
[~2024-02-29 08:44] MED LIST changes: +NAPR-1871 PO; +OXYC5CAP36 PO
[2024-02-29 08:56] VITALS: BP 138/79; PULSE 81; RESP 17; TEMP 97.7; O2SAT 99
[2024-02-29 09:26] LABS: BASOPHILS % (AUTO) 0.7 % (0.0-2.0); EOSINOPHILS # (AUTO) 0.1 K/uL (0-0.4); EOSINOPHILS % (AUTO) 2.3 % (0.0-4.0); HEMATOCRIT 36.1 % (36-48); HEMOGLOBIN 12.7 g/dL (12.0-16.0); LYMPHOCYTES # (AUTO) 1.2 K/uL (2.5-16.5); LYMPHOCYTES % (AUTO) 23.7 % (20.5-51.1); MEAN CORPUSCULAR HEMOGLOBIN 28 pg (27-31); MEAN CORPUSCULAR HGB CONC 35 g/dL (33-37); MEAN CORPUSCULAR VOLUME 79.7 fL (80-94); MONOCYTES # (AUTO) 0.4 K/uL (0.8-1.0); MONOCYTES % (AUTO) 7.3 % (1.7-9.3); NEUTROPHILS # (AUTO) 3.3 K/uL (1.8-7.7); PLATELET COUNT (AUTO) 232 K/uL (140-450); RED BLOOD CELL COUNT(AUTO) 4.53 MIL/uL (4.20-5.40); RED CELL DISTRIBUTION WIDTH 13.7 % (11.6-13.7)
[2024-02-29 09:35] LABS: ANION GAP 8.9 (8-16); CARBON DIOXIDE 30.7 mmol/L (21-32); POTASSIUM 4.6 mmol/L (3.5-5.1)
[2024-02-29] MEDS: NACL 0.9% 1,000 ML IV ONE ×2 (10:06→10:53)
[2024-02-29] MEDS: ACETAMINOPHEN EXTRA STRENGTH 500 MG TAB PO ONE (11:28)
[2024-02-29] MEDS: INSULIN REGULAR, HUMAN 100 UNIT/ML VIAL IVP ONE (12:35)
[2024-02-29] MEDS ORDERED: IBUP-2213 PO (12:43)
[2024-02-29] MEDS: KETOROLAC 30 MG/ML VIAL IVP ONE (12:55)
[2024-02-29 13:21] VITALS: BP 188/94; PULSE 78; RESP 16; TEMP 97.7; O2SAT 98
== END 2024-02-29 13:21 | disposition home or self-care (01) ==
LOC: MED 08:44
DX: R07.89 Other chest pain (principal); E11.9 Type 2 diabetes mellitus without complications; I10 Essential (primary) hypertension; Z79.4 Long term (current) use of insulin; Z79.899 Other long term (current) drug therapy; Z90.710 Acquired absence of both cervix and uterus
CPT/HCPCS: 36415; 71045; 80048; 82948; 84484; 85025; 93005; 96361; 96374; 96375; 99285; J1815; J1885; J7030

== ENCOUNTER 2024-06-02 13:22 | Emergency (ER) | payer OTHER ==
[~2024-06-02] VITALS: Ht 167.6 cm; Wt 86.2 kg
[~2024-06-02 13:22] MED LIST changes: -ACET-10509 PO; +ACET500T99 PO
[2024-06-02 13:29] VITALS: BP 148/76; PULSE 83; RESP 19; TEMP 98.6; O2SAT 100
[2024-06-02 14:49] LABS: BASOPHILS % (AUTO) 0.7 % (0.0-2.0); EOSINOPHILS # (AUTO) 0.1 K/uL (0-0.4); EOSINOPHILS % (AUTO) 1.9 % (0.0-4.0); HEMATOCRIT 35.3 % (36-48); HEMOGLOBIN 12.1 g/dL (12.0-16.0); LYMPHOCYTES # (AUTO) 1.2 K/uL (2.5-16.5); LYMPHOCYTES % (AUTO) 18.9 % (20.5-51.1); MEAN CORPUSCULAR HEMOGLOBIN 28 pg (27-31); MEAN CORPUSCULAR HGB CONC 34 g/dL (33-37); MEAN CORPUSCULAR VOLUME 80.1 fL (80-94); MONOCYTES # (AUTO) 0.5 K/uL (0.8-1.0); MONOCYTES % (AUTO) 7.6 % (1.7-9.3); NEUTROPHILS # (AUTO) 4.4 K/uL (1.8-7.7); NEUTROPHILS % (AUTO) 70.9 % (42.2-75.2); PLATELET COUNT (AUTO) 220 K/uL (140-450); RED CELL DISTRIBUTION WIDTH 13.5 % (11.6-13.7); WHITE BLOOD COUNT (AUTO) 6.3 K/uL (4.8-10.8)
[2024-06-02 15:01] LABS: ANION GAP 13.5 (8-16); CALCIUM 8.6 mg/dL (8.5-10.1); CARBON DIOXIDE 26.4 mmol/L (21-32); CREATININE 1.2 mg/dL (0.6-1.3); POTASSIUM 4.9 mmol/L (3.5-5.1)
[2024-06-02 15:06] LABS: PHOSPHORUS 4.3 mg/dL (2.5-4.9)
[2024-06-02] MEDS: NACL 0.9% 2,000 ML IV ONE (15:23)
[2024-06-02 15:27] LABS: APPEARANCE,URINE CLEAR (CLEAR); BILIRUBIN,URINE NEGATIVE (NEGATIVE); BLOOD, URINE 1+ (NEGATIVE); COLOR,URINE YELLOW (YELLOW); LEUKOCYTE ESTERASE ,URINE NEGATIVE (NEGATIVE); NITRITE, URINE NEGATIVE (NEGATIVE); PROTEIN,URINE 2+ (NEGATIVE); UGLUCOSE 3+ (NEGATIVE); UROBILINOGEN,URINE 0.2 EU/dL (0.2 - 1)
[2024-06-02] MEDS: INSULIN REGULAR, HUMAN 100 UNIT/ML VIAL IVP ONE (15:35)
[2024-06-02 15:39] LABS: BACTERIA,URINE 10-30 (MOD) /HPF (None Seen); SQUAMOUS EPITHELIAL CELL,UR 4-10 (MOD) /LPF (0-3 (FEW)); WBC,URINE 0-5 /HPF (0-5)
[2024-06-02] MEDS ORDERED: CLOT2CRE VG (17:16)
[2024-06-02 17:40] VITALS: BP 167/82; PULSE 78; RESP 18; TEMP 98.2; O2SAT 98
== END 2024-06-02 17:40 | disposition home or self-care (01) ==
LOC: MED 13:22
DX: E11.65 Type 2 diabetes mellitus with hyperglycemia (principal); B37.31 Acute candidiasis of vulva and vagina; E86.0 Dehydration; I10 Essential (primary) hypertension; Z79.899 Other long term (current) drug therapy; Z79.4 Long term (current) use of insulin
CPT/HCPCS: 36415; 71045; 80048; 81001; 82948; 83735; 83880; 84100; 84484; 85025; 87086; 87210; 93005; 96361; 96374; 99285; J1815; J7030